=== PATIENT | female | born 1960 | race Caucasian/White ===

== ENCOUNTER 2018-02-08 04:55 | Day surgery (SDC) | payer OTHER ==
[~2018-02-08 04:55] MED LIST: SYNTHROID100 MCG PO; SYNTHROID88 MCG PO
== END 2018-02-08 11:50 | disposition home or self-care (01) ==
LOC: CIR.AMB 04:55
DX: N75.1 Abscess of Bartholin's gland (principal)

== ENCOUNTER 2019-06-29 07:08 | Outpatient (CLI) | payer OTHER | END 2019-06-29 07:23 | disposition home or self-care (01) | LOC: TOM 07:08 | DX: K59.09 Other constipation (principal) ==